=== PATIENT | female | born 1955 | race Caucasian/White ===

== ENCOUNTER 2021-05-13 09:44 | Emergency (ER) | payer MEDICARE, SELFPAY ==
[2021-05-13 09:45] VITALS: BP 162/93; PULSE 60; RESP 19; TEMP 37.3; O2SAT 96; BMI 41.2
--- NOTE | 2021-05-13 10:41 | EDS_ITS ---
HPI History of Present Illness Chief Complaint: Other, Pain/Inj Narrative Narrative: 64-year-old female presenting with body aches, chills, nausea, vomiting, diarrhea. Patient states this started yesterday. Patient denies any sick contacts. Patient has not been vaccinated for COVID-19. Patient has a morphine pump which has not been alarming. She is concerned that it might not be working. Her family states that if it was not working it would be alarming. This is not happened. Patient admits to having a fever overnight of 101. She took Tylenol and this has resolved. She denies a cough or shortness of breath. She is complaining of abdominal pain and diarrhea as well as lower back pain. She denies any trauma. No black or bloody stools. Patient is from [place] and has not established herself with a primary care physician in [place]. Her industrial spray painter is also there. Patient admits to a history of pancreatitis. She states it is idiopathic. She denies drinking alcohol. Patient states that she has a morphine pump for her gastroparesis. [facility] Medical History Anxiety Depression Gastroparesis HTN (hypertension) Pancreatitis, chronic Home Medications alprazolam 1 mg PO TID PRN 05/13/21 [History Last Taken Unknown] dicyclomine 20 mg PO TID #20 tab 05/13/21 [Rx Last Taken Unknown] gabapentin 400 mg PO TID 05/13/21 [History Last Taken Unknown] lisinopril 40 mg PO DAILY 05/13/21 [History Last Taken Unknown] metformin 500 mg PO BID 05/13/21 [History Last Taken Unknown] omeprazole 40 mg PO DAILY 05/13/21 [History Last Taken Unknown] ondansetron 4 mg PO Q8H PRN PRN #14 tab 05/13/21 [Rx Last Taken Unknown] tizanidine 4 mg PO Q6H PRN PRN 05/13/21 [History Last Taken Unknown] trazodone 200 mg PO QHS 05/13/21 [History Last Taken Unknown] Allergy/AdvReac Type Severity Reaction Status Date / Time hydromorphone [From Dilaudid] Allergy Other Verified 05/13/21 09:48 Surgical History Hx of cholecystectomy Social History Smoking Status: Current every day smoker tobacco type: cigarettes ROS ROS ED Constitutional Constitutional ED: Reports chills and fever(s) Eyes Eyes: Denies blurry vision or diplopia ENT ENT ED: Denies rhinorrhea or sore throat Cardiovascular Cardiovascular: Denies chest pain or palpitations Respiratory/Chest Respiratory/Chest: Denies cough, dyspnea or sputum Gastrointestinal Gastrointestinal: Reports abdominal pain, diarrhea, nausea and vomiting Genitourinary Genitourinary ED: Denies dysuria or hematuria Musculoskeletal Musculoskeletal: Reports back pain and myalgias; Denies arthralgias or neck pain Integumentary Denies abscess or rash Neurologic Neurologic: Denies headache(s) or paresthesias EXAM Physical Exam Const Vital Signs: 05/13/21 09:45 05/13/21 12:02 Temperature 99.1 F Temperature Source Oral Pulse Rate 60 62 Respiratory Rate 19 H 19 H Blood Pressure 162/93 H 161/84 H Blood Pressure Mean 116 109 Pulse Ox 96 92 Oxygen Delivery Method Room Air Room Air Positive well nourished General Appearance ED: NAD; Negative for pallor HEENT Reports moist mucous membranes trauma Eyes PERRL and EOMs intact bilaterally Resp normal respiratory effort and clear to auscultation bilaterally Cardio regular rate and regular rhythm Neuro oriented x3 and CN's II-XII intact bilaterally Sensorium / Orientation: alert Psych mental status grossly normal Skin no rashes or lesions noted General Skin Exam: Negative for jaundice or pallor MDM MDM MDM Narrative Medical decision making narrative: Patient presenting with abdominal pain, nausea, vomiting. Patient has a morphine pump. She states that she is concerned that its not working correctly. I have no way of verifying this in the ED. Patient did request pain medication was given 2 doses of morphine however with each dose she does desaturate. For this reason I did not give her any more morphine. She was given Zofran her CBC shows that she does not have a leukocytosis. Hemoglobin is 14.1, platelets 283. Pressure. Her LFTs and lipase are normal. Potassium slightly low at 3.3.. CT of the abdomen pelvis shows fatty infiltration of the liver, small cyst on the pancreas, 2.2 cm x 1.6 and a meter soft tissue nodule in the right flank. I do not believe this is the source of her pain. She does state that the abdominal pain is diffuse. She complains of cramping. Her family requested follow-up with pain management and primary care physician which were provided. I did international student counselor her that it was a lengthy process and that she probably would not be able to be seen right away to have her pain pump assessed. I do not feel comfortable giving her narcotics given that [place] and has a pain pump and I do not know if it is working. She did request medications for cramping and nausea for home. This was provided. Impression: 1. Abdominal pain 2. Pancreatic cysts. 3. Soft tissue nodule in subcutaneous tissues on right flank 4. Nausea vomiting Lab Data Labs: Laboratory Results - last 24 hr 05/13/21 05/13/21 10:45 10:45 WBC 10.8 RBC 5.31 Hgb 14.1 Hct 44.2 MCV 83.2 MCH 26.6 L MCHC 31.9 L RDW Std Deviation 44.7 H RDW Coeff of Jacqueline 14.7 H Plt Count 283 MPV 9.8 Immature Gran % (Auto) 0.500 Neut % (Auto) 85.2 H Lymph % (Auto) 10.8 L Woodward % (Auto) 3.2 Eos % (Auto) 0.0 Baso % (Auto) 0.3 Absolute Neuts (auto) 9.2 H Absolute Lymphs (auto) 1.16 Nucleated RBC % 0 Sodium 135 L Potassium 3.3 L Chloride 100 Carbon Dioxide 28.0 Anion Gap 7 BUN 9 Creatinine 0.69 Estim Creat Clear Calc 81.15 Est GFR (MDRD) Af Amer 111 Est GFR (MDRD) Non-Af 92 BUN/Creatinine Ratio 13.1 Glucose 138 H Calcium 9.1 Total Bilirubin 0.60 AST 34 ALT 23 Alkaline Phosphatase 60 Total Protein 8.3 H Albumin 3.7 Globulin 4.6 H Albumin/Globulin Ratio 0.8 L Lipase 89 Radiography Diagnostic Testing: Radiology Impression Abdomen/Pelvis CT 05/13/21 10:44 IMPRESSION: Diffuse fatty infiltration of the liver. Tiny cysts are seen in the head of the pancreas. 2.2 cm x 1.6 on the soft tissue nodule in the subcutaneous tissues overlying the right flank. Electronically Signed: Anjum Lechuga MD at 12:03 EDT , Service support , Discharge Plan Triage Chief Complaint: Other, Pain/Inj ED Provider: Michael Alatorre Dx/Rx/DC Orders Prescriptions: New ondansetron 4 mg tablet,disintegrating 4 mg PO Q8H PRN PRN (Reason: Nausea) Qty: 14 RF: 0 dicyclomine 20 mg tablet 20 mg PO TID Qty: 20 RF: 0 No Action metformin 500 mg tablet 500 mg PO BID RF: 0 alprazolam 1 mg tablet 1 mg PO TID PRN (Reason: Anxiety) RF: 0 tizanidine 4 mg tablet 4 mg PO Q6H PRN PRN (Reason: Pain) RF: 0 gabapentin 400 mg capsule 400 mg PO TID RF: 0 omeprazole 40 mg capsule,delayed release(DR/EC) 40 mg PO DAILY RF: 0 trazodone 100 mg tablet 200 mg PO QHS RF: 0 lisinopril 40 mg tablet 40 mg PO DAILY RF: 0 Primary Care Provider: Care Physician,No Primary Referrals: Hoang Hawthorne MD [STAFF PHYSICIAN] - As soon as possible Alan Conner MD [STAFF PHYSICIAN] - As soon as possible Care Physician,No Primary [Primary Care Provider] - Disposition Disposition: Home, Self Care
--- NOTE | 2021-05-13 10:44 | CT_ITS ---
STUDY: CT ABDOMEN AND PELVIS WITH CONTRAST REASON FOR EXAM: Female, 65 years old. Abdominal pain. History of chronic pancreatitis. RADIATION DOSAGE (If Supplied By Facility): CTDIvol = ( 28.90 ) mGy, DLP = ( 1733.74 ) mGycm TECHNIQUE: Transaxial images were obtained from the dome of the diaphragm to the symphysis pubis without oral contrast. IV 100mL Isovue-300 was administered. Sagittal and coronal images were reconstructed. Individualized dose optimization techniques were used for this CT. COMPARISON: None. FINDINGS: Mild degree of increased interstitial markings at the lung bases suggests a possible scarring and/or atelectasis. Coronary artery calcification. There is decreased attenuation of the liver consistent with steatosis. There are surgical clips in the gallbladder fossa consistent with a prior cholecystectomy. Normal spleen. Annual cysts are seen in the head of the pancreas. Normal bilateral adrenal glands. Normal right kidney. Normal left kidney. There is a small hiatal hernia. Normal small intestine. Normal colon. The appendix is visualized and appears normal. There is scattered atherosclerotic calcification of the abdominal aorta, without a demonstrated aneurysm. Normal inferior vena cava. Normal retroperitoneum. Normal urinary bladder. There is absence of the uterus consistent with a prior hysterectomy. A pain pump is seen overlying the right lateral anterior abdominal wall. There is a 2.2 cm x 1.6 cm soft tissue nodule in the subcutaneous tissues overlying the right flank. There are diffuse degenerative changes of the visualized lumbar spine. CT/Abdomen/Pelvis W IV Cont ONLY IMPRESSION: Diffuse fatty infiltration of the liver. Tiny cysts are seen in the head of the pancreas. 2.2 cm x 1.6 on the soft tissue nodule in the subcutaneous tissues overlying the right flank. Electronically Signed: Anjum Lechuga MD at 12:03 EDT , Service support ,
[2021-05-13 10:56] LABS: Absolute Lymphocyte Count 1.16 X10^3/uL (0.83-4.51); Absolute Neutrophil Count 9.2 X10^3/uL (2.0-7.7); Basophil# 0.03 X10^3/uL; Basophil% 0.3 % (0-1); Hematocrit 44.2 % (37-47); Hemoglobin 14.1 g/dL (12.0-15.0); Lymphocyte # 1.16 X10^3/ul (0.83-4.51); Lymphocyte % 10.8 % (19-41); Mean Corp Hgb Conc 31.9 g/dL (32-36); Mean Corpuscular Hgb 26.6 pg (27.0-32.0); Mean Corpuscular Volume 83.2 fL (81-99); Mean Platelet Vol. 9.8 fl (6.2-12.0); Monocyte# 0.34 X10^3/uL; Monocyte% 3.2 % (0-10); NRBC Flagged by Analyzer 0 % (0-5); Neutrophil # 9.21 X10^3/uL (2.7-7.7); Neutrophil % 85.2 % (47-70); Platelet Count 283 K/mm3 (150-450); RBC Distribution Width CV 14.7 % (11.6-14.6); RBC Distribution Width SD 44.7 fl (35.1-43.9); Red Blood Count 5.31 M/mm3 (4.2-5.4); White Blood Count 10.8 K/mm3 (4.4-11.0)
[2021-05-13 11:12] LABS: ALB/GLOB Ratio 0.8 RATIO (0.9-2.4); AST(SGOT) 34 U/L (15-37); Alanine Aminotransfer ALT/SGPT 23 U/L (13-56); Albumin, Serum 3.7 g/dL (3.2-5.0); Alkaline Phosphatase 60 U/L (45-117); Anion Gap 7 (5-15); BUN 9 mg/dL (7-18); BUN/Creat Ratio 13.1 RATIO (10-20); Calcium,Total 9.1 mg/dL (8.5-10.1); Chloride 100 mmol/L (98-107); Creatinine, Serum 0.69 mg/dL (0.55-1.02); EST Glomerular Filtration Rate 92 mL/min (>60); Est Glom Filt Rate - Afr Amer 111 mL/min (>60); Estimated Creatinine Clearance 81.15 ml/min; Globulin 4.6 g/dL (2.2-4.2); Glucose 138 mg/dL (74-106); Lipase 89 U/L (73-393); Potassium 3.3 mmol/L (3.5-5.1); Protein, Total 8.3 g/dL (6.4-8.2); Sodium Level 135 mmol/L (136-145)
[2021-05-13] MEDS: Morphine 4 MG/ML Syringe IV (11:45)
[2021-05-13 12:02] VITALS: BP 161/84; PULSE 62; RESP 19; O2SAT 92
[2021-05-13] MEDS: Ondansetron 4 MG/2 ML Vial IV (12:02)
--- NOTE | 2021-05-13 12:49 | ED.RN ---
EXPLAINED TO PT AND FAMILY ON MULTIPLE OCCASIONS THAT WE WILL NOT GIVE ANY MORE MORPHINE BECAUSE IT DROPS HER OXYGEN AND SHE NEEDS PLACED ON O2. PT STATED HER OXYGEN RUNS LOW ANYWAY. EXPLAINED THE STANDARDS THAT WE TRY TO UPHOLD WITH OUR PT CARE. PT HAS INCREASED EPISODES OF DRY HEAVING WHEN FAMILY IS IN THE ROOM. NO ACTIVE VOMITING NOTED. . ALSO EXPLAINED TO PT AND FAMILY THAT THEY CAN ASK FOR ANY EQUIPMENT OR NEEDED STUFF. EXPLAINED THE [facility] AND [facility]RAW[facility] ARE NOT FOR FAMILY TO SEARCH THROUGH AND GET INTO. ALSO LET PT KNOW THAT WE ARE UNABLE TO INTERROGATE HER PAIN PUMP IN THE ER AND THAT I CAN ASK THE ER PHYSICIAN TO REFER HER TO A PCP AND PAIN MANAGEMENT PHYSICIAN TO F/U WITH.
--- NOTE | 2021-05-13 13:16 | CM.ED ---
SW Note Referral Source: Case Find Referral Reason: No Primary Care Physician (PCP) SW reviewed chart and noted that patient has no PCP. SW provided patient with list of [facility] and [facility] Physician List for reference. SW also provided patient with handout ?Where to go When?. No other issues or concerns voiced at this time. SW remains available for any additional needs. Plan: Provided patient with PCP information Nanci CHOUDHRAY
[2021-05-13 13:36] VITALS: BP 166/85; PULSE 70; RESP 18
== END 2021-05-13 13:42 | disposition home or self-care (01) ==
PROVIDERS: Emergency Provider Student in an Organized Health Care Education/Training Program
DX: K86.2 Cyst of pancreas (principal); R10.9 Unspecified abdominal pain; R22.2 Localized swelling, mass and lump, trunk; R11.2 Nausea with vomiting, unspecified; K86.1 Other chronic pancreatitis; Z97.8 Presence of other specified devices; I10 Essential (primary) hypertension; F32.9 Major depressive disorder, single episode, unspecified; F41.9 Anxiety disorder, unspecified; K31.84 Gastroparesis; K76.0 Fatty (change of) liver, not elsewhere classified; Z87.19 Personal history of other diseases of the digestive system; Z79.84 Long term (current) use of oral hypoglycemic drugs; Z79.899 Other long term (current) drug therapy; F17.210 Nicotine dependence, cigarettes, uncomplicated
CPT/HCPCS: 74177; 80053; 83690; 85025; 87426; 96374; 96375; 99285; J7030; Q9967; A4216; J2405

== ENCOUNTER 2021-10-08 09:09 | Outpatient (CLI) | payer MEDICARE, SELFPAY ==
--- NOTE | 2021-10-08 08:05 | CR.ITP_ITS ---
Diagnosis - General Information Admitting Diagnosis: NSTEMI, PCI w/coronary stenting 05/14/2021. Patient is transfering her care from [place], [place] to [facility] for her Cardiac Rehab. SHe has completed 21 sessions of CR and will finish her remaining [address] [facility]. Personal Learning Style:: Audio/Visual, Written Barriers to Learning: Vision Impairment - Readers Stage of change r/t lifestyle modifications:: Action Gave educational material for:: Treating Heart Disease, Emotions & Heart Disease, Stress Management & Relaxation, Sleep Disorders & Heart Disease, How The Heart Works, What it means to have Heart Disease, How Coronary Artery Disease is Diagnosed, Heart Procedures, What Heart Medications Do, Risk Factors & Modifications, Living an Active Life, Nutrition - Education/Goals Individual Counseling: Initial Assessment: Abnormal Cholesterol Levels, High Blood Pressure, Overweight/Obesity, Diabetes Cardiac Rehabilitation Goals: 1. Maintain the individual as the primary focus of care. 2. To improve the patient's quality of life. 3. Identification of cardiac risk factors and provide cardiac risk factor management. 4. Enhance the psychosocial status of the patient. 5. Reconditioning enough to allow the patient to resume customary activities. 6. Control symptoms of cardiac disease Personal Goals: Initial Assessment: Improve management of stress and emotions, Improve energy level, Improve muscle strength and endurance, Control risk factors (learn risk factor modification) Scale for measuring improvement of personal goals: Enter appropriate number in Comments. 2 = Unchanged. 3 = Slightly Better. 4 = Moderate Improvement. 5 = Met my Goal - Diagnosis & Disease Process Outcomes/Goals: Pt IDs own risk factors & lifestyle modifications by Session 10, Verbalizes symptoms of angina & response by session 3., Pt independently manages Plan/Interventions: Assist Pt to ID & engage in lifestyle modification to reduce CVD risk, Instruct on individual risk factors, Review symptoms of angina & emergency actions, Review secondary diagnosis & identify educational needs. - Safety Referral to Physical Therapy: No Referral to [facility] Case Management: No Fall Risk Assessed:: Yes Assistive Devices:: None Exercise - Initial Assessment - Visit Date of Eval: 10/08/21 Session #:: 0 - Pre-[facility] Rehab evaluation - transfer of care. Mets: Pre-: >7 METS for 30 minutes by discharge - Physician Prescribed Exercise Modalities: Rower, NuStep, SciFit, Lateral Unit Trust Manager Frequency: 3x/week for 12 weeks [36 sessions] Intensity: 60-80% of age predicted maximum heart rate reserve Current METSs:: 3.5 Target Heart Rate:: 102-133 Maximum Excercise HR:: 108 Resting Blood Pressure: 123/71 Maximum Exercise Blood Pressure: 168/84 EKG Type: NSR Current Physical Activity or Exercising minutes: 40 - Outcomes & Goals Goals:: Verbalizes understanding of THR, RPE & goal METS by session 6, Documents in home exercise log/reports 30 min aerobic 5 day/wk by DC, Demonstrates accurate pulse taking by DC - Intervention & Plan Exercise Program Goals: Instruct on personal THR & RPE, Instruct on MET level & personal MET goal, Show patient to take own pulse /validate performance until accurate, Instruct on home exercise - Physical Activity Home Exercise Physical Activity - Home Exercise: Safe Exercise, Warm-up, Self-monitoring, Cool-Down, Home Exercise > 30 min Daily, Sitting Time <3 hours/daily - Outcomes & Goals Outcomes/Goals: Demonstrates correct Warm-up/exercise Cool-Down (S3) if = 2.5 METs, Verbalizes symptoms of exercise intolerance by Session 3 (S3), Demonstrate safe equipment use (S3) & follows exercise prescrition (6) - Intervention & Plan Plan/Intervention: Instruct warm-up & cool-down if exercising at > 2 METs, Instruct on symptoms of exercise intolerance & actions to take, Instruct & monitor on saf, Assess intial functional capacity & safety risk Nutrition - Initial Assessment - Program Goals Nutrition Program Goals: LDL <100 optimal. 100 - 129 Near optimal. 130 - 159 Borderline High. 160 - 189 High. Total Cholesterol <200 desirable. 200 - 239 Borderline High. >/= 240 High. HDL < 40 Low >/=60 High. Triglycerides <150 desirable. <199 optimal. VlDL 5 - 40. HgbA1C <7%. BMI <25 Patient has diagnosis of Hyperlipidemia (ICD E78)?: Yes - Visit Date of Assessment:: 10/08/21 Session #:: 0 - Pre-cardiac Rehab eval-transfer of care - Cholesterol/Lipids Triglycerides (mg/dL): 0 - unavailable Determine presence & major risk factors that modify LDL goal: Hypertension or hypertensive medication, Age men > 45 years; women >/= 55 years Outcomes/Goals: Pt IDs own risk factors & lifestyle modifications by Session 10, Verbalizes symptoms of angina & response by session 3., Pt independently manages Intervention/Plan: Instruct on personal lipid levels & lipid goals/NCEP guidelines, Instruct on cholesterol Referral to dietitian:: Yes - Medical Nutrition Therapy - Diabetes (Other Core Measures) Diabetes Type: Diagnosis Type II ICD-10 E11 Fasting blood glucose:: 0 - unavailable Insulin dependent injection/pump?: Yes - Patient states DM controlled no longer taking insulin medications Non-Insulin Dependent?: Yes - Patient states DM controlled and no longer taking metformin Do you monitor your blood sugar at home?: No - Only when she feels it is needed Outcomes/Goals:: Able to state symptoms of, Able to state, Able to state Intervention/Plan:: Instruct on, Instruct on - Weight Mgt (Other Care) Not Applicable: No Height: 5 ft 7 in Weight:: 215 lb BMI: 33.6 Diagnosis Overweight/Obesity BMI> 30% ICD-10 E66: Yes Diagnosis High BMI/Morbid Obesity BMI> 35% ICD-10 Z68: No Intervention/Plan: Instruct on ideal BMI & set weight loss goal w/patient, Assist pt to ID & incorporate diet changes for weight loss by S9, Refer to Structured Weight Loss program as appropriate, Encourage goal of using 250- 300dcal per session for weight loss - Healthy Eating Habits Will attend diet classes:: Yes Outcomes/Goals:: Consume diet rich in vegs,fruits,whole grain/high fiber,fish,lean meat, Limit sat/trans fats,cholesterol & added salts & sugars Intervention/Plan:: Assess current eating habits - eating high protein low carb diet - Education Gave educational materials for:: Signs & symptoms of hypoglycemia, Signs & symptoms of hyperglycemia, Relate diabetes to coronary artery disease, Healthy eating Nutrition - 30-Day Assessment Nutrition - 60-Day Assessment Nutrition - 90-Day Assessment Nutrition - Final Assessment Medical - Initial Assessment - Visit Date of Eval: 10/08/21 Session #:: 0 - Pre-cardiac rehab eval-transfer of care - Medication Compliance Preventative Medication(s):: Aspirin, Clopidogrel/P2Y12 inhibit, Statin/lipid, Beta kell H/O mental health issues: depression, anxiety, or addiction?: No Doesn?t believe in the benefits of treatment?: No Believes medications are unnecessary or harmful?: No Has a concern about medication side effects?: No Expresses concern over the cost of medications?: No Outcomes/Goals: Verbalizes medications,desired effect & common side effects @ DC, Pt self-reports following medication regimen, Keeps card in wallet w/medications listed by DC Interventions/plans: Instruct on medication effects & side effects, Review medication list w/patient every two weeks, Instruct importance of taking meds as ordered & assist problem solving - Tobacco Use Tobacco Use: Non-smoker - Hypertension Hypertension Diagnosis:: Hypertension ICD-10 I10 Resting Blood Pressure:: 128/71 [employer] Hypertension Guidelines: [place] [employer] Hypertension Guidelines. Normal BP Less than 120/80. Elevated BP 120/80. Hypertension Stage 1: BP 130-139/80-89. Hypertesnion Stage 2: BP 140 or higher/90 or higher. Hypertension Crisis: BP higher than 180/120 Peak Exercise Blood Pressure:: 158/82 Outcomes/Goals: Able to verbalize/achieve optimal blood pressure <130/80, Incorporates diet changes & exercise for blood pressure control by DC Interventions/plan: Instruct on optimal blood pressure, hypertension & medications, Instruct on effects of sodium, alcohol, stress, exercise &hypertension - Tobacco Cessation Referral Smoking Cessation Referral:: No Individual Education/Counseling:: No Education Schedule Given:: Yes - Patient provided with printed and online education resources. Medical- 30-Day Assessment Medical- 60-Day Assessment Medical- 90-Day Assessment Medical - Final Assessment Psychosocial - Initial Assess - VIsit Date of Eval: 10/08/21 Session #:: 0 - pre-cardiac rehab evaluation - trasnfer of care Not Applicable: No History of previous Mental disease:: No History of Emotional Disorders: Anxious - Psychosocial Test Tool Used:: [employer] Power QOL Cardiac, PHQ-9 Questionnaire phq-9 Severity: Severity. 1-4 Minimal Depression. 5-9 Mild Depression. 10-14 Moderate Depression. 15-19 Moderately Sever Depression. 20-27 Severe Depression. Rule: - Referral to Behavioral Health PS - Interventions: Yes Attend Stress Management Classes, No Referral to Behavioral Health if PHQ-9 score >9:, No Referral to [facility], No Referral to Physician if PHQ-9 if score is 5-9: - Outcomes/Goals: See list Psychosocial Outcomes/Goals:: ID's personal stressors & 2 strategies to manage stress by discharge - Intervention/Plan: See List Interventions/Plan:: Assess stressors,coping strategies & signs of derpression on admission, Instruct/assist pt to develop coping & personal stress Mgt strategies, Instruct patient to recognize signs & symptoms of depression, Instruct patient to recog Psychosocial - 30-Day Assess Psychosocial - 60-Day Assess Psychosocial - 90-Day Assess Psychosocial - Final Assessmen Patient Health Questionnaire Initial Assessment 1. Little interest or pleasure in doing things: Not at all 2. Feeling down, depressed, or hopeless: Not at all 3. Trouble falling or staying asleep, or sleeping too much: Not at all 4. Feeling tired or having little energy: Several days 5. Poor appetite or overeating: More than half the days 6. Feeling bad about yourself -- or that you are a failure or have let yourself or your family down: Not at all 7. Trouble concentrating on things, such as reading the newspaper or watching television: Several days 8. Moving or speaking so slowly that other people could have noticed. Or the opposite - being so fidgety or restless that you have been moving around a lot more than usual: Not at all 9. Thoughts that you would be better off , or of hurting yourself in some way: Not at all Total Score: 4 JACOB-Q SV Test - Statements CAD is a disease of the arteries in the heart: False Examples of risk factors for heart disease: True Angina is chest pain or discomfort: I Don't Know The benefits of resistance training include: True Eating more meat and dairy products: False Anti-platelet medications such as aspirin are important: True The only effective way to manage stress: False An exercise warm-up slowly increases heart rate: True Prepared, processed foods usually have high sodium: True Depression is common after a heart attack: True The statin medications lower cholesterol: True To control blood pressure, lower the amount of sodium: True If someone gets chest discomfort during walking: False Transfats are partially hydrogenated vegetable oils: True Sleep apnea that is not treated increases the risk: I Don't Know To control cholesterol, one should become a vegetarian: False Someone knows if he/she is exercising at the right level: True Diabetes cannot be prevented with exercise & health eating: False Stress is a large risk for heart attack: True A diet that can help lower blood pressure is rich in: True - Total Score Total Correct Responses: 18 Self-Efficacy Initial Assessment We would like to know how confident you are in doing certain activities. Please select your confidence level for:: Select your confidence level for the following using the scale 1-10 where 1 is not at all confident and 10 is totally confident. Your score is the average of all 6 responses. Fatigue: How confident are you that you can keep the fatigue caused by your disease from interfering with the things you want to do? Select Number: 4 Physical Discomfort or Pain: How confident are you that you can keep the physical discomfort or pain of your disease from interfering with the things you want to do? Select Number: 7 Emotional Distress: How confident are you that you can keep the emotional distress caused by your disease from interfering with the things you want to do? Select Number: 5 Other Symptoms or Health Problems: How confident are you that you can keep other symptoms or health problems from interfering with the things you want to do? Select Number: 5 Different Tasks and Activities: How confident are you that you can do the different tasks and activities needed to manage your health condition so as to reduce your need to see a doctor? Select Number: 8 Medication: How confident are you that you can do things other than just taking medication to reduce how much your illness affects your everyday life? Select Number: 8 Total Score:: 6 Nutrition Survey - Nutrition Survey Initial Have you lost >10 lbs over the past 2 months without trying?: Yes Are you following a special diet at home for diabetes, low fat, or low salt?: Yes Are you interested in meeting with a dietitian for help understanding your diet?: No Do you eat less than 3 meals a day?: Yes Do you eat fatty meats (trevino, sausage, ribs, etc), fried foods, desserts, large amounts of salad dressings, margarine, butter, or cheese most days?: No Do you have food allergies? [Enter types in comment field]: No Do you eat in restaurants more than 3 times a week?: No Do you season food with salt, seasoning salt, or garlic salt?: No Do you used canned, boxed, frozen meals, or soups, seasoning packets?: No Total Score:: 3
--- NOTE | 2021-10-08 08:05 | PCM.CR.HP2 ---
CR - History & Physical - General Arrival date:: 10/08/21 Arrival time:: 08:05 Date of Referral:: 09/19/21 Date of CR Evaluation:: 10/08/21 Referring Physician: Dr. Juan Woods Primary Diagnosis: NSTEMI, PCI w/coronary stenting - History of Present Cardiac Event Onset Date: Enter Onset Date of cardiac illnesses in Comment field below Acute Myocardial Infarction within 12 months:: Yes - 05/13/2021 PTCA or coronary stenting:: Yes - 05/14/2021 Heart Failure EF <35%:: Yes - 35% scheduled for an CT and nuclear stress in November 2021 Type of Symptoms:: flu like symptoms after 24 hr came ot the emergency room but was sent home. - Sleep Disorder Evaluation Hx of Sleep Apnea: Yes Do you snore loudly (louder than talking or can be heard through closed doors)?: Yes - Wears BiPAP at [facility] Do you often feel tired/ fatigued/ sleepy during daytime?: No Has anyone observed you stop breathing during sleep?: Yes History of Hypertension (for STOP score): Yes STOP Results: Positive - Medications Home Medications: Ambulatory Orders Medication Instructions Recorded alprazolam 1 mg PO TID PRN 05/13/21 dicyclomine 20 mg PO TID #20 tab 05/13/21 gabapentin 300 mg PO TID 05/13/21 lisinopril 40 mg PO DAILY 05/13/21 metformin 500 mg PO BID 05/13/21 omeprazole 40 mg PO DAILY 05/13/21 ondansetron 4 mg PO Q8H PRN PRN #14 tab 05/13/21 tizanidine 4 mg PO Q6H PRN PRN 05/13/21 trazodone 200 mg PO QHS 05/13/21 aspirin 81 mg PO DAILY 10/08/21 clopidogrel 75 mg PO DAILY 10/08/21 duloxetine 60 mg PO BID 10/08/21 enoxaparin 40 mg SUBCUT DAILY 10/08/21 insulin aspart U-100 [Novolog 10/08/21 U-100 Insulin aspart] insulin detemir U-100 [Levemir 2 unit SUBCUT QHS 10/08/21 U-100 Insulin] melatonin 10 mg PO QHS 10/08/21 metoprolol succinate 12.5 mg PO DAILY 10/08/21 sacubitril-valsartan 1 tab PO BID 10/08/21 - Allergies Allergies/Adverse Reactions: Allergies hydromorphone [From Dilaudid] Allergy (Verified 10/08/21 08:16) Other Patient states she is fine with small doses but not large doses. Advanced Directives - Advanced Directives Power of Clothes Presser: Yes Living Will: Yes Advance Directives Information Provided: No Advance Directives on File: No DNR Order?:: No - MOLST See MOLST form: No Past Medical History - Covid-19 Screening Fever: No Unexplained muscle aches: No - residual of illness Current respiratory symptoms: No Gastro-intestinal symptoms: Yes - Gastro perisis and gastrial pancreatitis. 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 Had contact w/person w/symptoms or Covid-19 (+) last 14 days: No Has High Risk Exposures ID'd by Health dept/Inf Control team: No 65 years or older:: No Lives in Assisted Living facility:: No Has a chronic lung disease or moderate to severe asthma:: No Has a serious heart condition:: Yes Immunocompromised:: Yes Severely obese (Body Mass Index of 40 or higher):: No Diabetic:: Yes Has chronic kidney disease undergoing dialysis:: No Has liver disease:: No - Past Medical Illness Medical History: Past Medical History (Last Updated 10/08/21 @ 08:28 by Arpan Montaño CRT, DIRECTOR OF PROFESSIONAL SERVICES, BS) Anxiety F41.9 Depression F32.9 Gastroparesis K31.84 HTN (hypertension) I10 Non-ST elevation (NSTEMI) myocardial infarction Onset Date: ~05/13/21 I21.4 Pancreatitis, chronic K86.1 - Past Surgical History Surgical History: Past Surgical History (Last Updated 10/08/21 @ 08:28 by Arpan Montaño CRT, DIRECTOR OF PROFESSIONAL SERVICES, BS) Hx of cholecystectomy Z90.49 Presence of coronary angioplasty implant and graft Onset Date: ~05/14/21 Z95.5 Social History - Smoking History Smoking Status: Never smoker - Alcohol Use Alcohol Usage: Yes - rare occasional use. 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 Left click = Reports ([place]) Review of Present Symptoms: Reports: Shortness of Breath with Exertion - climbing stairs is still an issue, Dizziness/Lightheadedness - due to gabapentin, Fatigue, Appetite - Special Diet - high protein low carb diet controlled diabetic., Sleep - Normal. Denies: Shortness of Breath at Rest, Angina - anxiety issue, imflammation of esophagous., Heart Arrhythmia/Irregularities, Appetite - Normal - lost of appetite since 05/12/2021 and has lost 14 pounds, Sexual Changes - Pain Is Patient Pain Free?: No Pain Location: other - muscular and joint as residual to recent illness. Pain Level: 5/10 - exercise has helped Risk Factor Assessment - Vital Signs Temperature: 97.5 F Respiratory Rate: 16 Pulse Ox: 96 Blood Pressure: 123/71 - Pulse Pulse Rate: 75 Pulse Rhythm: Regular - Hypertension Blood Pressure Sitting - Left Arm: 123/71 - Stress Stress: Recent - Blood Cholesterol/Lipids Total Cholesterol (mg/dL) Goal = less than 200 mg/dL: 0 - unavailable - Diabetes Diabetic History: Type II - recently controlled and no longer requires insulin or metformin Nutrition Referral for Diabetes: No - Obesity Height: 5 ft 7 in Weight:: 215 lb Weight in Pounds: 215.0 lbs Weight Source: Stated by Patient Body Mass Index (BMI): 33.6 Nutritional Referral for Obesity: Yes - Physical Inactivity Physical Inactivity: Reg Exercise 30 min/day, Recreational activity - walking and exercise three times per week. - Risk Stratification Risk Guidelines: Lowest Risk: Risk Factor for Smoking, Risk Factor for Dyslipidemia, Risk Factor for Diabetes, Risk Factor for Hypertension - 123/71, Risk Factor for Sedentary Lifestyle, Risk Factor for Depression, Highest Risk: Risk Factor for Obesity - 33.6 Motivation - Motivation to Participate On a scale of 1 to 10, how prepared are you to commit to attending program?: 10 What do you see as the benefits of succesfully completing the program? In other words, what do you hope to get out of participating in the program?: hopefully increase EF, energy and strength. Was sick for 16 weeks and weak Are there issues you are dealing with that will interfere with completing the program?: Left knee repalcement, fell injured and right knee is bad. Do you have a spouse or signficant other, family or friends who will help support you to complete the program?: yes
[2021-10-08 08:38] VITALS: BP 123/71; PULSE 75; RESP 16; TEMP 36.4; O2SAT 96; BMI 33.6
[2021-10-08 09:17] VITALS: BP 123/71; BP 128/71; BP 158/82; BMI 33.6
== END 2021-10-08 23:59 | disposition home or self-care (01) ==
PROVIDERS: Visit Provider Internal Medicine
DX: I25.2 Old myocardial infarction (principal); K86.1 Other chronic pancreatitis; F41.9 Anxiety disorder, unspecified; F32.A Depression, unspecified; K31.84 Gastroparesis; Z95.5 Presence of coronary angioplasty implant and graft; Z79.82 Long term (current) use of aspirin; Z79.899 Other long term (current) drug therapy

== ENCOUNTER 2021-10-27 14:30 | Outpatient (RCR) | payer MEDICARE, SELFPAY | END 2021-10-27 23:59 | disposition home or self-care (01) | LOC: CR 14:30 | PROVIDERS: Visit Provider Internal Medicine | DX: I21.4 Non-ST elevation (NSTEMI) myocardial infarction (principal); R09.02 Hypoxemia | CPT/HCPCS: 93798 ==

== ENCOUNTER 2021-11-14 14:30 | Outpatient (RCR) | payer MEDICARE, SELFPAY ==
--- NOTE | 2021-11-03 13:18 | PCM.CR.ITP ---
Diagnosis Exercise - 30-day Assessment - Visit Date of Eval: 11/03/21 Session #:: 29 - Physician Prescribed Exercise Modalities: NuStep Frequency: 3x/week for 12 weeks [36 sessions] Intensity: 60-80% of age predicted maximum heart rate reserve Current METSs:: 4.2 Target Heart Rate:: 102-133 Current RPE:: 12-14 Maximum Excercise HR:: 116 Resting Blood Pressure: 130/80 Maximum Exercise Blood Pressure: 134/76 EKG Type: NSR to ST with rare PVCs - Outcomes & Goals Goals:: Verbalizes understanding of THR, RPE & goal METS by session 6, Documents in home exercise log/reports 30 min aerobic 5 day/wk by DC, Demonstrates accurate pulse taking by DC - Intervention & Plan Exercise Program Goals: Instruct on personal THR & RPE, Instruct on MET level & personal MET goal, Show patient to take own pulse /validate performance until accurate, Instruct on home exercise - Physical Activity Home Exercise Physical Activity - Home Exercise: Safe Exercise, Warm-up, Self-monitoring, Cool-Down, Home Exercise > 30 min Daily, Sitting Time <3 hours/daily - Outcomes & Goals Outcomes/Goals: Demonstrates correct Warm-up/exercise Cool-Down (S3) if = 2.5 METs, Verbalizes symptoms of exercise intolerance by Session 3 (S3), Demonstrate safe equipment use (S3) & follows exercise prescrition (6) - Intervention & Plan Plan/Intervention: Instruct warm-up & cool-down if exercising at > 2 METs, Instruct on symptoms of exercise intolerance & actions to take, Instruct & monitor on saf, Assess intial functional capacity & safety risk - 30-day Reassessments 30 day Reassessments:: Progressing Nutrition - Initial Assessment Nutrition - 30-Day Assessment - Program Goals Nutrition Program Goals: LDL <100 optimal. 100 - 129 Near optimal. 130 - 159 Borderline High. 160 - 189 High. Total Cholesterol <200 desirable. 200 - 239 Borderline High. >/= 240 High. HDL < 40 Low >/=60 High. Triglycerides <150 desirable. <199 optimal. VlDL 5 - 40. HgbA1C <7%. BMI <25 Patient has diagnosis of Hyperlipidemia (ICD E78)?: Yes - Visit Date of Assessment:: 11/03/21 Session #:: 29 - Cholesterol/Lipids Determine presence & major risk factors that modify LDL goal: Hypertension or hypertensive medication, Family history of premature CHD in Male < 55 years: female <65 yearsFa, Age men > 45 years; women >/= 55 years Outcomes/Goals: Pt IDs own risk factors & lifestyle modifications by Session 10, Verbalizes symptoms of angina & response by session 3., Pt independently manages Intervention/Plan: Instruct on personal lipid levels & lipid goals/NCEP guidelines, Instruct on cholesterol Referral to dietitian:: No 30-day Reassessments:: Progressing - Diabetes (Other Core Measures) Diabetes Type: Diagnosis Type II ICD-10 E11 - controlled Insulin dependent injection/pump?: No Non-Insulin Dependent?: No Do you monitor your blood sugar at home?: No Referral to Diabetic Clinic:: No - Weight Mgt (Other Care) Height: 5 ft 7 in Weight:: 213 lb BMI: 33.3 Diagnosis Overweight/Obesity BMI> 30% ICD-10 E66: Yes Diagnosis High BMI/Morbid Obesity BMI> 35% ICD-10 Z68: No Outcomes/Goals: Pt sets, maintains & shows weight loss goal & trend during rehab Intervention/Plan: Instruct on ideal BMI & set weight loss goal w/patient, Assist pt to ID & incorporate diet changes for weight loss by S9, Encourage goal of using 250-300dcal per session for weight loss 30 day Reassessments:: Progressing - Healthy Eating Habits Will attend diet classes:: Yes Outcomes/Goals:: Consume diet rich in vegs,fruits,whole grain/high fiber,fish,lean meat, Limit sat/trans fats,cholesterol & added salts & sugars Intervention/Plan:: Assess current eating habits 30-day Reassessments:: Progressing - Education Gave educational materials for:: Relate diabetes to coronary artery disease, Healthy eating Nutrition - 60-Day Assessment Nutrition - 90-Day Assessment Nutrition - Final Assessment Medical - Initial Assessment Medical- 30-Day Assessment - Visit Date of Eval: 11/03/21 Session #:: 29 - Medication Compliance Preventative Medication(s):: Aspirin, Clopidogrel/P2Y12 inhibit, Statin/lipid, Beta kell H/O mental health issues: depression, anxiety, or addiction?: No Doesn?t believe in the benefits of treatment?: No Believes medications are unnecessary or harmful?: No Has a concern about medication side effects?: No Expresses concern over the cost of medications?: No Outcomes/Goals: Verbalizes medications,desired effect & common side effects @ DC, Pt self-reports following medication regimen, Keeps card in wallet w/medications listed by DC Interventions/plans: Instruct on medication effects & side effects, Review medication list w/patient every two weeks, Instruct importance of taking meds as ordered & assist problem solving 30-day Reassessments:: Progressing - Tobacco Use Tobacco Use: Non-smoker - Hypertension Hypertension Diagnosis:: Hypertension ICD-10 I10 Resting Blood Pressure:: 130/80 [place] [employer] Hypertension Guidelines: [place] [employer] Hypertension Guidelines. Normal BP Less than 120/80. Elevated BP 120/80. Hypertension Stage 1: BP 130-139/80-89. Hypertesnion Stage 2: BP 140 or higher/90 or higher. Hypertension Crisis: BP higher than 180/120 Peak Exercise Blood Pressure:: 134/76 Outcomes/Goals: Able to verbalize/achieve optimal blood pressure <130/80, Incorporates diet changes & exercise for blood pressure control by DC Interventions/plan: Instruct on optimal blood pressure, hypertension & medications, Instruct on effects of sodium, alcohol, stress, exercise &hypertension 30 day Reassessments:: Progressing - Tobacco Cessation Referral Smoking Cessation Referral:: No Individual Education/Counseling:: No Education Schedule Given:: Yes Medical- 60-Day Assessment Medical- 90-Day Assessment Medical - Final Assessment Psychosocial - Initial Assess Psychosocial - 30-Day Assess - VIsit Date of Eval: 11/03/21 Session #:: 29 Not Applicable: Yes History of previous Mental disease:: Yes History of Emotional Disorders: Anxious, Depression - Psychosocial Test Tool Used:: PHQ-9 Questionnaire phq-9 Severity: Severity. 1-4 Minimal Depression. 5-9 Mild Depression. 10-14 Moderate Depression. 15-19 Moderately Sever Depression. 20-27 Severe Depression. Rule: - Referral to Behavioral Health PS - Interventions: Yes Attend Stress Management Classes, No Referral to Behavioral Health if PHQ-9 score >9:, No Referral to [facility], No Referral to Physician if PHQ-9 if score is 5-9: - Outcomes/Goals: See list Psychosocial Outcomes/Goals:: ID's personal stressors & 2 strategies to manage stress by discharge - Intervention/Plan: See List Interventions/Plan:: Assess stressors,coping strategies & signs of derpression on admission, Instruct/assist pt to develop coping & personal stress Mgt strategies, Instruct patient to recognize signs & symptoms of depression, Instruct patient to recog - 30-day Reassessments: 30 day Reassessments:: Progressing Psychosocial - 60-Day Assess Psychosocial - 90-Day Assess Psychosocial - Final Assessmen Patient Health Questionnaire 60-Day Re-eval Assessment 1. Little interest or pleasure in doing things: Not at all 2. Feeling down, depressed, or hopeless: Not at all 3. Trouble falling or staying asleep, or sleeping too much: Not at all 4. Feeling tired or having little energy: Several days 5. Poor appetite or overeating: More than half the days 6. Feeling bad about yourself -- or that you are a failure or have let yourself or your family down: Not at all 7. Trouble concentrating on things, such as reading the newspaper or watching television: Several days 8. Moving or speaking so slowly that other people could have noticed. Or the opposite - being so fidgety or restless that you have been moving around a lot more than usual: Not at all 9. Thoughts that you would be better off , or of hurting yourself in some way: Not at all How difficult have these problems made it for you to do your work, take care of things at home, or get along with other people?: Not difficult at all Total Score: 4 Self-Efficacy Nutrition Survey
[2021-11-03 13:25] VITALS: BP 130/80; BP 134/76; BMI 33.3
== END 2021-11-27 23:59 | disposition home or self-care (01) ==
LOC: CR 14:30
PROVIDERS: Visit Provider Internal Medicine
DX: I25.2 Old myocardial infarction (principal); R09.02 Hypoxemia
CPT/HCPCS: 93798

== ENCOUNTER 2021-12-01 14:30 | Outpatient (RCR) | payer MEDICARE, SELFPAY ==
[2021-11-03 13:25] VITALS: BMI 33.3
[2021-11-28 00:40] VITALS: BP 130/80; BP 134/76
== END 2021-12-27 23:59 ==
LOC: CR 14:30
DX: I25.2 Old myocardial infarction (principal)
CPT/HCPCS: 93798

== ENCOUNTER 2022-02-25 19:19 | Emergency (ER) | payer MEDICARE, SELFPAY ==
[2021-11-03 13:25] VITALS: BMI 33.3
[2022-02-25] VITALS (10 sets, daily range): BP systolic 80–110; BP diastolic 50–67; PULSE 47–133; RESP 15–19; TEMP 36.6; O2SAT 96–100; BMI 33.0
--- NOTE | 2022-02-25 19:33 | EKG12_ITS ---
Test Reason : DYSRHYTHMIA Blood Pressure : / mmHG Vent. Rate : 061 BPM Atrial Rate : 061 BPM P-R Int : 212 ms QRS Dur : 088 ms QT Int : 424 ms P-R-T Axes : 069 -35 045 degrees QTc Int : 426 ms Sinus rhythm with 1st degree A-V block Left axis deviation Abnormal ECG Confirmed by FREDY ACOSTA, WANDA ([id number]), publishing editor DUANE LIN ([id number]) on 02/26/2022 11:25:39 A M Referred By: JORY Confirmed By:PRECIOUS DANIEL MD
--- NOTE | 2022-02-25 19:33 | CT_ITS ---
We are attempting to reach an attending provider to discuss findings. An addendum with communication details will be sent when the communication is complete. EXAM: CT HEAD WITHOUT INTRAVENOUS CONTRAST CLINICAL INDICATION: Neuro deficit, acute, stroke suspected TECHNIQUE: Multiple axial images were obtained of the head without intravenous contrast. This CT exam was performed using one or more of the following dose reduction techniques: automated exposure control, adjustment of the mA and/or kV according to patient size, and/or use of iterative reconstruction technique. This report was created using [employer] report Pre[employer] technology. COMPARISON: None. FINDINGS: BRAIN AND EXTRA-AXIAL SPACES: Left parafalcine subdural hematoma measuring 2.5 mm in greatest width. No midline shift. No evidence of acute infarct. There is preservation of the crews/white matter interface. Posterior fossa structures are unremarkable. Ventricles are appropriate for age. No hydrocephalus. Basal cisterns are patent. BONES/JOINTS: See below. SOFT TISSUES: Left posterior scalp subcutaneous hematoma. No underlying skull fracture. SINUSES: Unremarkable as visualized. Clear. MASTOID AIR CELLS: Unremarkable. Clear. ORBITS: Visualized globes, extraocular muscles, optic nerves and retrobulbar fat appear unremarkable. aspects 10 CT/STROKE Brain/Head without Cont IMPRESSION: 1. Left parafalcine subdural hematoma measuring 2.5 mm in greatest width. 2. Left posterior scalp subcutaneous hematoma. No underlying skull fracture. CF called. Electronically Signed: Armaan Robertson MD at 20:01 EDT Reading Location ID and State: [facility] / [place] , Service support ,
[2022-02-25] MEDS: 0.9% Normal Saline 1,000 ML 999 ML IV (19:49)
[2022-02-25 19:55] LABS: Absolute Lymphocyte Count 2.84 X10^3/uL (0.83-4.51); Absolute Neutrophil Count 2.8 X10^3/uL (2.0-7.7); Basophil# 0.05 X10^3/uL; Basophil% 0.8 % (0-1); Hematocrit 35.1 % (37-47); Hemoglobin 10.9 g/dL (12.0-15.0); Lymphocyte # 2.84 X10^3/ul (0.83-4.51); Lymphocyte % 45.2 % (19-41); Mean Corp Hgb Conc 31.1 g/dL (32-36); Mean Corpuscular Hgb 29.1 pg (27.0-32.0); Mean Corpuscular Volume 93.9 fL (81-99); Mean Platelet Vol. 10.7 fl (6.2-12.0); Monocyte# 0.61 X10^3/uL; Monocyte% 9.7 % (0-10); NRBC Flagged by Analyzer 0 % (0-5); Neutrophil # 2.77 X10^3/uL (2.7-7.7); Neutrophil % 44.1 % (47-70); Platelet Count 253 K/mm3 (150-450); RBC Distribution Width CV 16.4 % (11.6-14.6); RBC Distribution Width SD 56.2 fl (35.1-43.9); Red Blood Count 3.74 M/mm3 (4.2-5.4); White Blood Count 6.3 K/mm3 (4.4-11.0)
[2022-02-25 19:56] LABS: Bedside Glucose 93 mg/dL (74-106)
--- NOTE | 2022-02-25 19:57 | CM.ED ---
Addendum entered by Sadaf Issa 02/25/22 20:12: Pt is being transferred to [facility]. Directions provided to pt's guest to [facility]. Original Note: Social Work Note Reason for Referral: Stroke Team This SW and Nanci MOYA met with pt's brother who is present at [facility]. Emotional Support provided. SW to remain available should additional needs arise. Sadaf Issa RADIO SCRIPT WRITER, BAKERY HELPER
[2022-02-25 20:03] LABS: Prothrombin Time (Protime)PT. 12.7 SECONDS (11.7-14.9)
[2022-02-25 20:23] LABS: Anion Gap 6 (5-15); BUN 11 mg/dL (7-18); BUN/Creat Ratio 11.8 RATIO (10-20); Calcium,Total 8.8 mg/dL (8.5-10.1); Chloride 106 mmol/L (98-107); Creatinine, Serum 0.94 mg/dL (0.55-1.02); EST Glomerular Filtration Rate 64 mL/min (>60); Est Glom Filt Rate - Afr Amer 77 mL/min (>60); Glucose 73 mg/dL (74-106); Potassium 3.9 mmol/L (3.5-5.1); Sodium Level 142 mmol/L (136-145); Troponin-I HS 6 pg/mL (3.0-54.0)
--- NOTE | 2022-02-25 20:38 | RAD_ITS ---
STUDY: XR Chest 1 View 02/25/2022 8:39 PM REASON FOR EXAM: Female, 66 years old. CHEST PAIN Neuro deficit, acute, stroke suspected COMPARISON: None TECHNIQUE: XR Chest 1 View FINDINGS: There is no demonstrated pleural abnormality. Normal heart size. Normal mediastinum. Normal sandeep. Prominent appearing increased interstitial lung markings. Normal visualized pulmonary arteries. There is atherosclerotic calcification of the aortic arch with tortuosity. There are diffuse degenerative changes of the visualized thoracic spine. There is degenerative osteoarthritis of the bilateral shoulders. There is no demonstrated abnormality of the visualized soft tissue structures of the upper abdomen. RAD/Chest 1 View IMPRESSION: There are no acute findings. Electronically Signed: Armaan Robertson MD at 20:54 EDT ,
--- NOTE | 2022-02-25 21:01 | ED.RN ---
[facility], THEY DON[facility]T HAVE ANY AVAILABLE, THEY TRIED [facility], [facility] HAD NOBODY. SO [facility] [facility] IS COMING TO GET PATIENT, THEY REQUESTED A SQUAD TO BRING THEM UP AND DOWN FROM THE ER. NO PRIVATE AMBULANCE AVAILABLE SO [facility] WAS CALLED
--- NOTE | 2022-02-25 22:28 | EDS_ITS ---
HPI History of Present Illness Chief Complaint: Head Injury Narrative Narrative: 66-year-old female presenting with altered mental status. Last seen well about 1630 by her family. She had an unwitnessed fall at home was found to have a occipital hematoma. She does appear to be confused to her family. She is not answering questions appropriately. They state that she has not had any alcohol or drug ingestion. She is on aspirin and Plavix. Prior to the event she was otherwise well. [facility] Medical History Anxiety Depression Gastroparesis HTN (hypertension) Non-ST elevation (NSTEMI) myocardial infarction (~05/13/21) Pancreatitis, chronic Home Medications alprazolam 1 mg tablet 1 mg PO TID PRN Anxiety 05/13/21 [History Last Taken Unknown] dicyclomine 20 mg tablet 20 mg PO TID #20 tabs 05/13/21 [Rx Last Taken Unknown] gabapentin 400 mg capsule 300 mg PO TID 05/13/21 [History Last Taken Unknown] lisinopril 40 mg tablet 40 mg PO DAILY 05/13/21 [History Last Taken Unknown] metformin 500 mg tablet 500 mg PO BID 05/13/21 [History Last Taken Unknown] omeprazole 40 mg capsule,delayed release 40 mg PO DAILY 05/13/21 [History Last Taken Unknown] ondansetron 4 mg disintegrating tablet 4 mg PO Q8H PRN PRN Nausea #14 tabs 05/13/21 [Rx Last Taken Unknown] tizanidine 4 mg tablet 4 mg PO Q6H PRN PRN Pain 05/13/21 [History Last Taken Unknown] trazodone 100 mg tablet 200 mg PO QHS 05/13/21 [History Last Taken Unknown] aspirin 81 mg chewable tablet 81 mg PO DAILY 10/08/21 [History Last Taken U nknown] clopidogrel 75 mg tablet 75 mg PO DAILY 10/08/21 [History Last Taken Unknown] duloxetine 60 mg capsule,delayed release sprinkle 60 mg PO BID 10/08/21 [History Last Taken Unknown] enoxaparin 40 mg/0.4 mL subcutaneous syringe 40 mg subcut DAILY 10/08/21 [History Last Taken Unknown] insulin aspart U-100 100 unit/mL subcutaneous solution (Novolog U-100 Insulin aspart) 10/08/21 [History Last Taken Unknown] insulin detemir U-100 100 unit/mL subcutaneous solution (Levemir U-100 Insulin) 2 unit subcut QHS 10/08/21 [History Last Taken Unknown] melatonin 10 mg tablet 10 mg PO QHS 10/08/21 [History Last Taken Unknown] metoprolol succinate 25 mg capsule sprinkle, ext. release 24 hr 12.5 mg PO DAILY 10/08/21 [History Last Taken Unknown] sacubitril 24 mg-valsartan 26 mg tablet 1 tab PO BID 10/08/21 [History Last Taken Unknown] Allergy/AdvReac Type Severity Reaction Status Date / Time hydromorphone [From Dilaudid] Allergy Other Verified 02/25/22 19:22 Surgical History Hx of cholecystectomy Presence of coronary angioplasty implant and graft (~05/14/21) Social History Smoking Status: Never smoker ROS ROS ED Review of Systems ROS Unobtainable: due to encephalopathy EXAM Physical Exam Const Vital Signs: 02/25/22 19:20 02/25/22 19:32 02/25/22 19:32 Temperature 98 F Temperature Source Temporal Pulse Rate 133 H 64 64 Respiratory Rate 16 16 16 Blood Pressure 86/53 L 92/51 L 92/51 L Blood Pressure Mean 64 64 64 Pulse Ox 98 96 96 Oxygen Delivery Method Room Air Room Air Room Air 02/25/22 20:02 02/25/22 20:15 02/25/22 20:20 Temperature Temperature Source Pulse Rate 56 L 54 L Respiratory Rate 16 19 H 16 Blood Pressure 80/50 L 90/54 L Blood Pressure Mean 60 66 Pulse Ox 97 98 Oxygen Delivery Method Room Air Room Air 02/25/22 20:30 02/25/22 20:45 02/25/22 21:00 Temperature Temperature Source Pulse Rate 57 L 52 L 57 L Respiratory Rate 18 15 15 Blood Pressure 102/66 99/65 110/67 Blood Pressure Mean 78 76 81 Pulse Ox 97 100 97 Oxygen Delivery Method Room Air Room Air Room Air 02/25/22 21:15 02/25/22 21:29 Temperature Temperature Source Pulse Rate 47 L 54 L Respiratory Rate 18 18 Blood Pressure 110/63 110/63 Blood Pressure Mean 78 78 Pulse Ox 96 99 Oxygen Delivery Method Room Air Positive unkempt Constitutional Narrative: Confused General Appearance ED: unkempt HEENT Reports TM's clear, dry mucous membranes and other other Other Details: 6 cm fluctuant cephalhematoma on the right occiput. No laceration. Superficial abrasion overlying. ; Negative for Wells's sign or raccoon eyes Face and Sinus: face symmetric Nose: external nose normal, nares normal and nasal mucous membranes and turbinates normal Tympanic Membrane ED: Yes TM's clear Mouth ED: Yes dry mucous membranes Mouth: dry mucous membranes Eyes PERRL General Eye ED: Negative for pale conjunctiva Chest Wall inspection of chest normal and palpation of chest normal Resp normal respiratory effort and clear to auscultation bilaterally GI normal to inspection, nondistended, normoactive bowel sounds Extremity normal to inspection Neuro CN's II-XII intact bilaterally and no sensory deficits noted Neuro Narrative: NIH stroke scale score of 0. Patient is disoriented and believes it is February. She also believes [place] is the president. She is alert to self and family. She knows her name, age, date of . Sensorium / Orientation: alert, oriented to person and confused Speech: speech normal Psych Appearance: unkempt STROKE Vital Signs/Narrative: Vital Signs Temp Pulse Resp BP Pulse Ox O2 Del Method 02/25/22 21:29 54 L 18 110/63 99 02/25/22 21:15 47 L 18 110/63 96 Room Air 02/25/22 21:00 57 L 15 110/67 97 Room Air 02/25/22 20:45 52 L 15 99/65 100 Room Air 02/25/22 20:30 57 L 18 102/66 97 Room Air 02/25/22 20:20 16 02/25/22 20:15 54 L 19 H 90/54 L 98 Room Air 02/25/22 20:02 56 L 16 80/50 L 97 Room Air 02/25/22 19:32 64 16 92/51 L 96 Room Air 02/25/22 19:32 64 16 92/51 L 96 Room Air 02/25/22 19:20 98 F 133 H 16 86/53 L 98 Room Air MDM MDM MDM Narrative Medical decision making narrative: Patient presenting with altered mental status with a large cephalhematoma on the right occiput. She is on aspirin and Plavix with altered mental status. I had a high suspicion for hemorrhagic stroke based on her symptoms. Patient was taken to CT which showed a left parafalcine subdural hematoma measuring 2.5 mm at its greatest width. It also identifies the scalp hematoma. Patient noted to have low blood pressure 86/53 and she was given IV fluids. Blood pressure responded to 110/63. NIH stroke scale score of 0 although she is confused. It is unclear whether she was confused prior to the fall and this is how she fell versus concussive symptoms from hitting her head. Stroke radiologist did be beam and recommended transfer to [facility]. 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 Patient had to be reevaluated multiple times due to altered mental status and hypotension although hypotension is improving. Her mental status exam. NIH stroke scale score is the same as well. CBC showed no leukocytosis. Hemoglobin is 10.9 without a comparison for greater than a year. Renal function is normal without increased BUN so I do not suspect GI bleed. Electrolytes within normal limits. Coagulation studies are normal. High-sensitivity troponin is 6. EKG shows a sinus rhythm with a ventricular rate of 61 bpm with first-degree AV block. No ST elevation or depression on my interpretation. Had a bedside discussion with the family regarding the patient's diagnosis, prognosis. All questions were answered. Patient was still mentating and did not need to be intubated prior to transport. Impression: 1. Fall 2. Left parafalcine subdural hematoma 3. Occipital cephalhematoma 4. Altered mental status 5. Hypotension resolved Lab Data Attestation: I reviewed the patient's lab results. Labs: Laboratory Results - last 24 hr 02/25/22 02/25/22 02/25/22 19:29 19:29 19:29 WBC 6.3 RBC 3.74 L Hgb 10.9 L Hct 35.1 L MCV 93.9 MCH 29.1 MCHC 31.1 L RDW Std Deviation 56.2 H RDW Coeff of Jacqueline 16.4 H Plt Count 253 MPV 10.7 Immature Gran % (Auto) 0.200 Neut % (Auto) 44.1 L Lymph % (Auto) 45.2 H Bowman % (Auto) 9.7 Eos % (Auto) 0.0 Baso % (Auto) 0.8 Absolute Neuts (auto) 2.8 Absolute Lymphs (auto) 2.84 Nucleated RBC % 0 PT 12.7 INR 1.0 APTT 28.0 Sodium 142 Potassium 3.9 Chloride 106 Carbon Dioxide 30.0 Anion Gap 6 BUN 11 Creatinine 0.94 Estim Creat Clear Calc 58.80 Est GFR (MDRD) Af Amer 77 Est GFR (MDRD) Non-Af 64 BUN/Creatinine Ratio 11.8 Glucose 73 L Calcium 8.8 Troponin I High Sens 6 POC Glucose 02/25/22 19:48 WBC RBC Hgb Hct MCV MCH MCHC RDW Std Deviation RDW Coeff of Jacqueline Plt Count MPV Immature Gran % (Auto) Neut % (Auto) Lymph % (Auto) Bowman % (Auto) Eos % (Auto) Baso % (Auto) Absolute Neuts (auto) Absolute Lymphs (auto) Nucleated RBC % PT INR APTT Sodium Potassium Chloride Carbon Dioxide Anion Gap BUN Creatinine Estim Creat Clear Calc Est GFR (MDRD) Af Amer Est GFR (MDRD) Non-Af BUN/Creatinine Ratio Glucose Calcium Troponin I High Sens POC Glucose 93 Radiography Diagnostic Testing: Clinical Impression(s) from Imaging Studies Brain CT 02/25/22 19:33 IMPRESSION: 1. Left parafalcine subdural hematoma measuring 2.5 mm in greatest width. 2. Left posterior scalp subcutaneous hematoma. No underlying skull fracture. CF called. Electronically Signed: Armana Robertson MD at 20:01 EDT , ADDENDUM: 02/25/222054 IMPRESSION: 1. Left parafalcine subdural hematoma measuring 2.5 mm in greatest width. 2. Left posterior scalp subcutaneous hematoma. No underlying skull fracture. CF called. N.B. : The above Results were Read Back by Armaan Robertson MD to Dr. Landry MD, and understanding confirmed on 02/25/2022 20:02:34 (ET). Electronically Signed: Armaan Robertson MD at 20:01 EDT , Chest X-Ray 02/25/22 20:38 IMPRESSION: There are no acute findings. 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, Discussing w/Consultants, Arranging Admission or Transfer and Performing Direct Patient Care at Bedside Discharge Plan Triage Chief Complaint: Head Injury ED Provider: Michael Alatorre Dx/Rx/DC Orders Prescriptions: No Action metformin 500 mg tablet 500 mg PO BID Label Comments: TAKE 1 TABLET BY MOUTH TWICE DAILY alprazolam 1 mg tablet 1 mg PO TID PRN (Reason: Anxiety) Label Comments: TAKE 1 TABLET BY MOUTH THREE TIMES DAILY NEEDED FOR ANXIETY tizanidine 4 mg tablet 4 mg PO Q6H PRN PRN (Reason: Pain) Label Comments: TAKE 1 TABLET BY MOUTH 4 TIMES DAILY NEEDED gabapentin 400 mg capsule 300 mg PO TID Label Comments: TAKE 1 CAPSULE BY MOUTH THREE TIMES DAILY omeprazole 40 mg capsule,delayed release(DR/EC) 40 mg PO DAILY Label Comments: TAKE 1 CAPSULE BY MOUTH ONCE DAILY trazodone 100 mg tablet 200 mg PO QHS Label Comments: TAKE 2 TABLETS BY MOUTH AT BEDTIME NEEDED FOR INSOMNIA lisinopril 40 mg tablet 40 mg PO DAILY Label Comments: TAKE 1 TABLET BY MOUTH ONCE DAILY ondansetron 4 mg tablet,disintegrating 4 mg PO Q8H PRN PRN (Reason: Nausea) Qty: 14 0RF dicyclomine 20 mg tablet 20 mg PO TID Qty: 20 0RF clopidogrel 75 mg Tablet 75 mg PO DAILY insulin aspart U-100 [Novolog U-100 Insulin aspart] 100 unit/mL Solution aspirin 81 mg Tablet,Chewable 81 mg PO DAILY enoxaparin 40 mg/0.4 mL Syringe 40 mg SUBCUT DAILY Levemir U-100 Insulin 100 unit/mL Solution 2 unit SUBCUT QHS melatonin 10 mg Tablet 10 mg PO QHS sacubitril-valsartan 24-26 mg Tablet 1 tab PO BID metoprolol succinate 25 mg Capsule,Sprinkle,Er 24hr 12.5 mg PO DAILY duloxetine 60 mg Capsule, Delayed Rel Sprinkle 60 mg PO BID Primary Care Provider: Care Physician,No Primary Referrals: Care Physician,No Primary [Primary Care Provider] - Disposition Disposition: Acute Care Hospital Discharge Location: [facility] Discharge Date/Time: 02/25/22 21:30
== END 2022-02-25 21:30 | disposition short-term general hospital (02) ==
PROVIDERS: Emergency Provider Student in an Organized Health Care Education/Training Program; Visit Provider Student in an Organized Health Care Education/Training Program
DX: S06.5X0A Traumatic subdural hemorrhage without loss of consciousness, initial encounter (principal); K86.1 Other chronic pancreatitis; Z79.4 Long term (current) use of insulin; S00.03XA Contusion of scalp, initial encounter; W19.XXXA Unspecified fall, initial encounter; I44.0 Atrioventricular block, first degree; I10 Essential (primary) hypertension; Y92.009 Unspecified place in unspecified non-institutional (private) residence as the place of occurrence of the external cause; F32.A Depression, unspecified; F41.9 Anxiety disorder, unspecified; I25.2 Old myocardial infarction; Z79.02 Long term (current) use of antithrombotics/antiplatelets; Z79.82 Long term (current) use of aspirin; Z79.899 Other long term (current) drug therapy; K31.84 Gastroparesis; Z95.1 Presence of aortocoronary bypass graft; I95.9 Hypotension, unspecified
CPT/HCPCS: 70450; 71045; 80048; 82962; 84484; 85025; 85610; 85730; 93005; 96360; 96361; 99285; J7030; A4216

== ENCOUNTER → 2022-06-25 | Outpatient (CLI) | payer MEDICARE, SELFPAY ==
[2021-11-03 13:25] VITALS: BMI 33.3
[2022-06-25 10:19] LABS: Mucous, Urine 0 SEEN /hpf (<or=2+)
[2022-06-25 10:23] LABS: Color, Urine Yellow (Yellow); Glucose, Dipstick 1000 mg/dl (Normal); Ketone-Dipstick Negative (Negative); Leukocyte Esterase-Dipstick 100 /ul (Negative); Nitrite-Dipstick Negative (Negative); Occult Blood-Urine 10 /ul (Negative); Protein-Dipstick Negative (Negative); Urine Bilirubin Dipstick Negative (Negative); Urine Clarity Clear (Clear); Urine Urobilinogen Normal (Normal)
[2022-06-25 10:41] LABS: Bacteria RARE /hpf (None Seen); Red Blood Cells-Urine 0-5 SEEN /hpf (0-5); Squamous Epithelial Cells - UA 0-5 SEEN /hpf (5-10); White Blood Cells 0-5 SEEN /hpf (0-5)
== END | disposition home or self-care (01) ==
LOC: LABSPEC 10:02
PROVIDERS: Referring Provider Physician Assistant; Visit Provider Physician Assistant
DX: R30.9 Painful micturition, unspecified (principal)
CPT/HCPCS: 81001; 87077; 87086; 87088; 87186

== ENCOUNTER 2022-07-28 12:20 | Outpatient (CLI) | payer MEDICARE, SELFPAY ==
[2021-11-03 13:25] VITALS: BMI 33.3
[2022-07-28 12:26] LABS: Bacteria 0 SEEN /hpf (None Seen); Mucous, Urine 0 SEEN /hpf (<or=2+); Squamous Epithelial Cells - UA 0 SEEN /hpf (5-10)
[2022-07-28 12:28] LABS: Color, Urine Brown (Yellow); Glucose, Dipstick 1000 mg/dl (Normal); Ketone-Dipstick 5 mg/dl (Negative); Leukocyte Esterase-Dipstick 500 /ul (Negative); Nitrite-Dipstick Positive (Negative); Occult Blood-Urine 250 /ul (Negative); Protein-Dipstick 100 mg/dl (Negative); Urine Bilirubin Dipstick 1 mg/dL (Negative); Urine Clarity Turbid (Clear); Urine Urobilinogen 1 mg/dl (Normal); Urine pH 6.5 (5.0 - 8.0)
[2022-07-28 12:35] LABS: Red Blood Cells-Urine > 100 SEEN /hpf (0-5)
[2022-07-28 12:36] LABS: White Blood Cells >100 SEEN /hpf (0-5)
== END 2022-07-28 23:59 | disposition home or self-care (01) ==
LOC: LABSPEC 12:21
PROVIDERS: Visit Provider Physician Assistant
DX: N39.0 Urinary tract infection, site not specified (principal)
CPT/HCPCS: 81001; 87086; 87088

== ENCOUNTER → 2022-09-14 | Outpatient (CLI) | payer MEDICARE, SELFPAY ==
[2021-11-03 13:25] VITALS: BMI 33.3
[2022-09-14 18:18] LABS: Mucous, Urine 0 SEEN /hpf (<or=2+); Squamous Epithelial Cells - UA 0 SEEN /hpf (5-10)
[2022-09-14 18:36] LABS: Color, Urine Yellow (Yellow); Glucose, Dipstick Normal (Normal); Ketone-Dipstick 5 mg/dl (Negative); Leukocyte Esterase-Dipstick 500 /ul (Negative); Nitrite-Dipstick Positive (Negative); Occult Blood-Urine 250 /ul (Negative); Protein-Dipstick 100 mg/dl (Negative); Specific Gravity, Urine 1.025 (1.002-1.030); Urine Clarity Cloudy (Clear); Urine Urobilinogen 1 mg/dl (Normal); Urine pH 6.5 (5.0 - 8.0)
[2022-09-14 18:40] LABS: Urine Bilirubin Dipstick 1 mg/dL (Negative)
[2022-09-14 18:59] LABS: Bacteria 2+ /hpf (None Seen); Calcium Oxalate Crystals Ur 1+ /hpf (<or=2+); Red Blood Cells-Urine > 100 SEEN /hpf (0-5); White Blood Cells >100 SEEN /hpf (0-5)
== END | disposition home or self-care (01) ==
PROVIDERS: Visit Provider Physician Assistant
DX: N39.0 Urinary tract infection, site not specified (principal); R31.9 Hematuria, unspecified; M54.9 Dorsalgia, unspecified
CPT/HCPCS: 81001; 87086; 87088